=== PATIENT | female | born 1990 | race Caucasian/White ===

== ENCOUNTER 2019-01-12 10:34 | Emergency (ER) | payer OTHER ==
[~2019-01-12] VITALS: Ht 167.6 cm; Wt 55.1 kg
[2019-01-12] MEDS ORDERED: PROMETHAZINE INJ 25 MG/ML VIAL (J2550) IM ONE (11:15)
--- NOTE | 2019-01-12 12:22 | REP ---
Right humerus two views History: Trauma There is no acute fracture or dislocation. The joint spaces are normal in appearance. Impression: There is no fracture or dislocation. Electronically Signed by Claude Bhardwaj MD 01/12/2019 12:13 P
--- NOTE | 2019-01-12 12:24 | REP ---
Right forearm two views History: Trauma There is no acute fracture or dislocation. The joint spaces are normal in appearance. Impression: There is no acute fracture or dislocation. Electronically Signed by Claude Bhardwaj MD 01/12/2019 12:15 P
--- NOTE | 2019-01-12 12:25 | REP ---
Right femur four views History: Trauma There is no acute fracture or dislocation. The joint spaces are normal in appearance. Impression: There is no acute fracture or dislocation. Electronically Signed by Claude Bhardwaj MD 01/12/2019 12:17 P
--- NOTE | 2019-01-12 12:27 | REP ---
Right tibia-fibula of four views History: Trauma There is no acute fracture or dislocation. The joint spaces are normal in appearance. Impression: There is no acute fracture or dislocation. Electronically Signed by Claude Bhardwaj MD 01/12/2019 12:19 P
[2019-01-12 12:28] VITALS: BP 113/72
--- NOTE | 2019-01-12 12:29 | REP ---
Sacrum and coccyx three views History: Trauma There is no acute fracture or subluxation. Intervertebral discs are normal in height. An IUD is present in the pelvis. Impression: There is no acute fracture or subluxation. Electronically Signed by Claude Bhardwaj MD 01/12/2019 12:21 P
[2019-01-13] MEDS ORDERED: CYCL10TA PO (21:06)
== END 2019-01-12 12:30 | disposition home or self-care (01) ==
LOC: M ED 10:34
DX: S39.92XA Unspecified injury of lower back, initial encounter (principal); S79.911A Unspecified injury of right hip, initial encounter; S49.91XA Unspecified injury of right shoulder and upper arm, initial encounter; S89.91XA Unspecified injury of right lower leg, initial encounter; W10.9XXA Fall (on) (from) unspecified stairs and steps, initial encounter; Y92.099 Unspecified place in other non-institutional residence as the place of occurrence of the external cause; Y93.9 Activity, unspecified; Y99.9 Unspecified external cause status; Z72.0 Tobacco use; Z97.5 Presence of (intrauterine) contraceptive device; Z79.899 Other long term (current) drug therapy; Z88.8 Allergy status to other drugs, medicaments and biological substances

== ENCOUNTER 2019-01-13 19:57 | Emergency (ER) | payer OTHER ==
[~2019-01-13] VITALS: Ht 167.6 cm; Wt 55.0 kg
[2019-01-13] MEDS ORDERED: CYCL10TA PO (21:06)
[2019-01-13 21:08] LABS: BASO # 0.1 10^3/uL (0.0-0.2); BASO % 0.7 % (0.0-1.0); EOS # 0.1 10^3/uL (0.0-0.50); EOS % 1.5 % (0.0-3.0); HEMATOCRIT 39.7 % (36.0-47.0); HEMOGLOBIN 13.5 g/dl (12.0-15.5); LYMPH # 2.2 10^3/uL (1.5-6.5); MEAN CORPUSCULAR HEMOGLOBIN 32.5 pg (27.0-33.0); MEAN CORPUSCULAR VOLUME 95.7 fl (80.0-96.0); MONO # 0.7 10^3/uL (0.0-0.8); MONO % 7.4 % (0.0-5.0); NEUTROPHILS # 5.8 10^3/uL (1.8-7.7); NEUTROPHILS % 65.2 % (36.0-66.0); PLATELET COUNT, AUTOMATED 215 10^3/uL (150-450); RED BLOOD COUNT 4.15 10^6/uL (4.00-5.40); WHITE BLOOD COUNT 8.9 10^3/uL (4.0-10.0)
[2019-01-13 21:22] LABS: ALBUMIN 3.9 GM/DL (3.2-5.2); ALT/SGPT 17 U/L (12-78); BILIRUBIN,TOTAL 0.6 MG/DL (0.2-1.0); BLOOD UREA NITROGEN 15 MG/DL (7-18); CALCIUM LEVEL 9.1 MG/DL (8.5-10.1); CARBON DIOXIDE LEVEL 28 MEQ/L (21-32); CHLORIDE LEVEL 106 MEQ/L (98-107); CREATININE FOR GFR 0.94 MG/DL (0.55-1.30); GLOMERULAR FILTRATION RATE > 60.0 (>60); GLUCOSE, FASTING 80 MG/DL (70-100); POTASSIUM SERUM 3.4 MEQ/L (3.5-5.1); SODIUM LEVEL 141 MEQ/L (136-145); TOTAL PROTEIN 6.9 GM/DL (6.4-8.2)
[2019-01-13 22:36] VITALS: BP 102/58
--- NOTE | 2019-01-13 22:42 | REPVR ---
EXAM: US Pelvis Complete, Transabdominal and US Pelvis, Transvaginal EXAM DATE/TIME: 01/13/2019 9:31 PM CLINICAL HISTORY: 28 years old, female; Pelvic pain; Prior surgery; Surgery date: 6+ months; Surgery type: C section; Additional info: R pelvic pain, h/o ovarian cyst TECHNIQUE: Imaging protocol: Real-time transabdominal and transvaginal pelvic ultrasound (complete) with image documentation. Transvaginal imaging was used for better evaluation of the endometrium and adnexa. COMPARISON: CR Sacrum, Coccyx 01/12/2019 11:18 AM FINDINGS: Uterus/cervix: Uterus measures 9.6 and 4.1 x 6.2 cm. Heterogeneous echotexture of the uterus may indicate the presence of adenomyosis. Endometrial echocomplex measures 2.7 mm. IUD demonstrated centrally within the endometrial cavity. Contour deformity lower uterine segment anteriorly consistent with scar. Right adnexa: Right ovary measures 3.7 x 1.8 x 3.7 cm. Resistive index 0.65. 2.5 x 1.6 x 1.1 cm hemorrhagic cyst versus corpus luteum. Left adnexa: Left ovary measures 2.5 x 1.3 x 2.3 cm. Resistive index 0.65. Free fluid: None. Bladder: Normal. IMPRESSION: IV demonstrated within the endometrial cavity. Hemorrhagic cyst versus corpus luteum right ovary. Possible adenomyosis uteri. Further evaluation with pelvic MRI could be obtained in the appropriate clinical setting. Otherwise unremarkable scan status post section. Electronically signed by: Alejo Rodríguez On 01/13/2019 22:41:48 PM
[2019-01-13] MEDS ORDERED: POTASSIUM CHLORIDE 10 MEQ SR TABLET PO ONE (23:45)
--- NOTE | 2019-01-14 09:13 | ECGEPIP ---
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
--- NOTE | 2019-01-17 13:01 | ED PDOC ---
Post-Departure Follow-Up ft camila alonzo faxed formal report of pelvic us for fu Charbel Flores MD Jan 17, 2019 13:01
== END 2019-01-13 23:56 | disposition home or self-care (01) ==
LOC: M ED 19:57
DX: N83.201 Unspecified ovarian cyst, right side (principal); R42 Dizziness and giddiness; N80.0 Endometriosis of uterus; F41.9 Anxiety disorder, unspecified; Z88.8 Allergy status to other drugs, medicaments and biological substances; Z97.5 Presence of (intrauterine) contraceptive device; F17.210 Nicotine dependence, cigarettes, uncomplicated

== ENCOUNTER 2019-05-09 21:46 | Inpatient (IN) | payer OTHER ==
[~2019-05-09] VITALS: Ht 167.6 cm; Wt 52.1 kg
[~2019-05-09 21:46] MED LIST: CYCL10TA PO; FLUO20CA19 PO; IBUP200T45 PO; NICO21PAT TD
[2019-05-09 22:33] LABS: HEMATOCRIT 39.5 % (36.0-47.0); HEMOGLOBIN 13.2 g/dl (12.0-15.5); MEAN CORPUSCULAR HEMOGLOBIN 29.8 pg (27.0-33.0); MEAN CORPUSCULAR HGB CONC 33.4 g/dl (32.0-36.5); MEAN CORPUSCULAR VOLUME 89.2 fl (80.0-96.0); PLATELET COUNT, AUTOMATED 257 10^3/uL (150-450); RED BLOOD COUNT 4.43 10^6/uL (4.00-5.40); WHITE BLOOD COUNT 8.4 10^3/uL (4.0-10.0)
[2019-05-09 22:58] LABS: AMPHETAMINES LEVEL URINE NEGATIVE (NEGATIVE); BARBITURATES URINE NEGATIVE (NEGATIVE); BENZODIAZEPINES URINE NEGATIVE (NEGATIVE); CANNABINOIDS URINE NEGATIVE (NEGATIVE); COCAINE METABOLITE URINE NEGATIVE (NEGATIVE); METHADONE URINE NEGATIVE (NEGATIVE); OPIATES URINE NEGATIVE (NEGATIVE); PHENCYCLIDINE URINE NEGATIVE (NEGATIVE)
[2019-05-09 23:00] LABS: HCG, SERUM QUALITATIVE NEGATIVE (NEGATIVE)
[2019-05-09 23:09] LABS: ACETAMINOPHEN LEVEL < 2.0 UG/ML (10.0-30.0); ALT/SGPT 14 U/L (12-78); BILIRUBIN,DIRECT 0.3 MG/DL (0.0-0.2); BILIRUBIN,TOTAL 1.1 MG/DL (0.2-1.0); BLOOD UREA NITROGEN 20 MG/DL (7-18); CALCIUM LEVEL 8.9 MG/DL (8.5-10.1); CARBON DIOXIDE LEVEL 30 MEQ/L (21-32); CHLORIDE LEVEL 104 MEQ/L (98-107); CREATININE FOR GFR 1.07 MG/DL (0.55-1.30); ETHYL ALCOHOL (ETHANOL) < 0.003 % (0.000-0.010); GLOMERULAR FILTRATION RATE > 60.0 (>60); GLUCOSE, FASTING 89 MG/DL (70-100); POTASSIUM SERUM 3.4 MEQ/L (3.5-5.1); SALICYLATE LEVEL < 1.7 MG/DL (5.0-30.0); SODIUM LEVEL 139 MEQ/L (136-145); TOTAL PROTEIN 7.1 GM/DL (6.4-8.2)
[2019-05-09] MEDS ORDERED: POTASSIUM CHLORIDE 10 MEQ SR TABLET PO ONE (23:30)
[2019-05-10] MEDS ORDERED: MAALOX 30 ML SUSP *UDC PO PRN
[2019-05-10] MEDS ORDERED: ACETAMINOPHEN TAB 650MG DOSE (2X325MG) PO PRN
[2019-05-10] MEDS ORDERED: hydrOXYzine 25 MG TAB PO PRN
[2019-05-10] MEDS ORDERED: MOM 30ML SUSPENSION UDC PO PRN
[2019-05-10] MEDS ORDERED: traZODone 50 MG TAB PO PRN
[2019-05-10] MEDS ORDERED: IBUP-1764 PO (00:28)
[2019-05-10] MEDS ORDERED: CETI10TA8 PO (00:28)
[2019-05-10] MEDS ORDERED: FLUO20CA8 PO (00:28)
[2019-05-10 00:31] VITALS: BP 115/85
[2019-05-10] MEDS ORDERED: POTASSIUM CHLORIDE 10 MEQ SR TABLET PO ONE (01:45)
[2019-05-10 06:26] VITALS: BP 108/74
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
[2019-05-10] MEDS ORDERED: FLUoxetine 10 MG CAP PO ONE (11:00)
[2019-05-10] MEDS ORDERED: CETIRIZINE (ZyrTEC) 10 MG TAB PO PRN (11:00)
[2019-05-10 16:11] VITALS: BP 103/60
[2019-05-11 07:37] VITALS: BP 98/60
--- NOTE | 2019-05-11 08:17 | MHIPNPDOC ---
[facility] [place] Progress Note Sukhwinder Zheng MRN: N/A Date of : N/A Date of Service: 05/11/2019 History of Present Illness The patient is a 28-year-old woman who is well-known to this provider from previous admission and a discharge from the ER, is readmitted to the inpatient mental health unit after reportedly making passive statements that she "did not want to be around her , which was apparently misinterpreted to mean that she had suicidal thoughts." She was brought in, she has been living with a boyfriend despite having not been from her . She reports that she has become more fatigued and irritated, but has generally been in the same state of mental health since her last interaction of this provider on the 03 of May. She reports that she generally gets into difficulties when she is exposed to her soon to be ex- and mother stating that they generally cause her to become irritated and to make statements. She reports that she feel safe in this environment, but is not able to describe any concrete suicidal thoughts to this provider at this time. The psychosocial information is updated as appropriate with the patient and reflected from my previous H&P. Interval History The patient is met with today. She reports being very tearful after a fairly upsetting phone call. She laments in this provider's office for significant amount of time, feeling that "no one loved her." Discussed with the patient at length her emotional experience as well as psycho-education about depression, grief and relational struggle. She reports she is tolerating the Prozac well and the Wellbutrin well and denies any side effects related to it but he continues to report hopelessness, low mood and an inability to see past her negative environment at this time. She had denied any overt suicidality but reported that she did not care whether she "lived or ." Spent a significant amount of time educating the patient on the risks, benefits of Wellbutrin and discussing its role in her treatment as an augmentation regimen. Review Of Systems As above. Psychotherapy None on this visit. Vital Signs Reviewed. Mental Status Examination General: Well dressed with good hygiene Speech: Spontaneous and fluid Thought processes: Linear and logical MSK: Smooth and coordinated gait, no signs of tremors or involuntary orofacial movements Thought content: Hopelessly preoccupied Abstract reasoning, and computation: Intact Description of associations: Intact Description of abnormal or psychotic thoughts: Denies any overt suicidality but reports significant wants to "not be around." Denies any homicidal ideation. Denies any auditory or visual hallucinations. Judgment: Limited Insight: Limited Orientation: Alert and orientated 3 Cognition: Grossly normal Recent and remote memory: Intact Attention span and concentration: Intact Fund of knowledge: Adequate Mood: "Horrible" Affect: Dysthymic and tearful Diagnoses Major depressive disorder in remission. 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 Assessment and Plan MDD, in partial remission: Continue Prozac 30 mg daily. Add Wellbutrin 150 mg daily. Unspecified trauma stress related disorder: As above. 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 Disposition The patient will likely need a further inpatient stay in order to treat her increasingly dysphoric mood and hopelessness that is manifesting into more suicidal statements. Time Spent 30 minutes with greater than 50% of time spent on counseling/coordination of care. Vital Signs Vital Signs Date Time Temp Pulse Resp B/P (MAP) Pulse Ox O2 Delivery O2 Flow Rate FiO2 05/11/19 08:11 Room Air 05/11/19 07:37 98.2 78 14 98/60 (73) 05/10/19 00:31 100 Current Medications Current Medications Medications (Trade) Dose Ordered Sig/Yoandy Route PRN Reason Start Time Stop Time Status Last Admin Dose Admin Acetaminophen (Tylenol Tab) 650 mg Q6HP PRN PO HEADACHE or DISCOMFORT 05/10/19 00:00 Al Hydrox/Mg Hydrox/Simethicone (Mylanta) 30 ml Q4HP PRN PO HEARTBURN/INDIGESTION 05/10/19 00:00 Cetirizine HCl (ZyrTEC) 10 mg DAILY PRN PO ALLERGY SYMPTOMS 05/10/19 11:00 Fluoxetine HCl (PROzac) 20 mg DAILY PO 05/11/19 09:00 05/10/19 10:58 DC Fluoxetine HCl (PROzac) 30 mg DAILY PO 05/11/19 09:00 Home Med (Med Rec Complete!) ASDIRECTED XX 05/10/19 00:30 05/10/19 00:31 DC Hydroxyzine HCl (Atarax) 25 mg QID PRN PO ANXIETY 05/10/19 00:00 Magnesium Hydroxide (Milk Of Magnesia) 30 ml DAILYPRN PRN PO CONSTIPATION 05/10/19 00:00 Trazodone HCl (Desyrel) 50 mg QHSP PRN PO INSOMNIA 05/10/19 00:00 Allergies Coded Allergies: ondansetron (Verified Adverse Reaction, Mild, vomits, 01/12/19) Coconut (Verified Adverse Reaction, Unknown, vomiting, 05/10/19) pineapple (Verified Adverse Reaction, Unknown, VOMITING, 05/10/19) VICKI RIVERA DO May 11, 2019 08:17
[2019-05-11] MEDS ORDERED: FLUoxetine 20 MG CAP PO SCH (09:00)
[2019-05-11] MEDS: FLUoxetine 10 MG CAP PO SCH (09:28)
--- NOTE | 2019-05-11 12:16 | HPEPDOC ---
General Date of Admission May 09, 2019 at 23:59 Date of Service: May 11, 2019 Chief Complaint The patient is a 28-year-old female Who presented to the emergency room with complaints of feeling overwhelmed and stressed History of Present Illness Patient is a 28-year-old female with a past history of depression, anxiety, who presented to the emergency room with complaints of feeling overwhelmed and stressed. This is currently being managed by psychiatry. Hospitalist services consultation for medical screening evaluation. Currently patient denies any headache. Patient does report some chest discomfort with palpitations. She denies shortness of breath or cough. Denies any abdominal pain but does report nausea without vomiting. Has reported some diarrhea that started yesterday. She is reported 3-4 bowel movements that she notes are watery/loose. Patient has not experienced any fevers over the last 2 weeks, but does report some chills. Patient reports that her appetite is on and off and has reported a weight loss of approximately 4 kg over 1-2 week duration. Home Medications Scheduled Fluoxetine Hcl (Fluoxetine HCl) 20 Mg Capsule, 20 MG PO DAILY, (Reported) Scheduled PRN Cetirizine HCl (Cetirizine HCl) 10 Mg Tablet, 10 MG PO DAILY PRN for ALLERGY SYMPTOMS, (Reported) Ibuprofen (Ibuprofen) 200 Mg Tablet, 400 MG PO Q6H PRN for PAIN, (Reported) Allergies Coded Allergies: ondansetron (Verified Adverse Reaction, Mild, vomits, 01/12/19) Coconut (Verified Adverse Reaction, Unknown, vomiting, 05/10/19) pineapple (Verified Adverse Reaction, Unknown, VOMITING, 05/10/19) Past Medical History Medical History Depression / Anxiety Surgical History Right knee surgery 2016 2, 2012 and 2014 Family History - Mother with a history of melanoma and thyroid disease - Father with history of heart problems Social History - Denies the use of illicit drugs; patient reports that she quit smoking. Patient does report social alcohol use - Denies recent travel or sick contacts - Lives alone - Occupation; patient is currently unemployed Review of Systems Other systems 10 point review of systems complete, all negative otherwise stated in HPI Vital Signs - Vitals: BP 98/60, HR 78, RR 14, Sat 100%RA, Temp 98.2F - General: Lying in bed, No acute distress, Speaking in full sentences, AAOx3 - HEENT: NC, AT, PERRLA, EOMI - CVS: RRR, +S1S2 - Lungs: Fair air entry bilaterally, No appreciable wheezing / rales / rhonchi - Abdomen: Soft, Non-distended, Non-tender - Extremities: No lower extremity edema, No calf tenderness - Neuro: No focal motor or sensory deficit - Skin: No visible rashes Plan / VTE VTE Prophylaxis Ordered?: Yes Plan Plan Stress / Feeling overwhelmed/ Depression / Anxiety - Patient reports that over the last few weeks shes been feeling more overwhelmed and cant - Patient was admitted to inpatient mental health unit under the care of psychiatry - Currently being managed by psychiatry Patient has reported some diarrhea - Lab work does not reveal any evidence of dehydration - Advised increased oral hydration DVT prophylaxis - c/w early ambulation Female production operations engineer was present for the duration of his history and physical examination Please reconsult as needed TUSHAR RAMSEY MD May 11, 2019 12:15
[2019-05-11 18:00] VITALS: BP 116/68
[2019-05-12 06:44] VITALS: BP 110/66
[2019-05-12] MEDS: FLUoxetine 10 MG CAP PO SCH (09:30)
[2019-05-12] MEDS: buPROPion **XL** TABLET 150MG (WELLBUTRIN XL) PO SCH (09:30)
--- NOTE | 2019-05-12 09:42 | MHDSPDOC ---
[facility] Discharge Summary Vital Signs/I&Os Vital Signs Date Time Temp Pulse Resp B/P (MAP) Pulse Ox O2 Delivery O2 Flow Rate FiO2 05/12/19 06:44 98.6 71 14 110/66 (81) 05/11/19 08:11 Room Air 05/10/19 00:31 100 Medications Scheduled Fluoxetine Hcl (Fluoxetine HCl) 20 Mg Capsule, 20 MG PO DAILY, (Reported) Scheduled PRN Cetirizine HCl (Cetirizine HCl) 10 Mg Tablet, 10 MG PO DAILY PRN for ALLERGY SYMPTOMS, (Reported) Ibuprofen (Ibuprofen) 200 Mg Tablet, 400 MG PO Q6H PRN for PAIN, (Reported) Allergies Coded Allergies: ondansetron (Verified Adverse Reaction, Mild, vomits, 01/12/19) Coconut (Verified Adverse Reaction, Unknown, vomiting, 05/10/19) pineapple (Verified Adverse Reaction, Unknown, VOMITING, 05/10/19) VICKI RIVERA DO May 12, 2019 09:42
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
[2019-05-12 15:44] VITALS: BP 100/50
[2019-05-13 06:59] VITALS: BP 99/59
[2019-05-13] MEDS: FLUoxetine 10 MG CAP PO SCH (09:35)
[2019-05-13] MEDS: buPROPion **XL** TABLET 150MG (WELLBUTRIN XL) PO SCH (09:35)
[2019-05-13 16:07] VITALS: BP 100/60
--- NOTE | 2019-05-13 17:11 | MHIPNPDOC ---
[facility] Progress Note Progress Note DATE OF SERVICE: 05/13/19 HISTORY: As per Dr. Garcia's previous notes: "The patient a 28-year-old woman who is well-known to this provider from previous admission and a discharge from the ER, is readmitted to the inpatient mental health unit after reportedly making passive statements that she "did not want to be around her , which was apparently misinterpreted to mean that she had suicidal thoughts." She was brought in, she has been living with a boyfriend despite having not been from her . She reports that she has become more fatigued and irritated, but has generally been in the same state of mental health since her last interaction of this provider on the 03 of May. She reports that she generally gets into difficulties when she is exposed to her soon to be ex- and mother stating that they generally cause her to become irritated and to make statements. She reports that she feel safe in this environment, but is not able to describe any concrete suicidal thoughts to this provider at this time." VITAL SIGNS: See below. NEW TEST RESULTS: See below CURRENT MEDICATIONS: See below. MENTAL STATUS EXAMINATION: Patient is a 28-year old female, who is alert, cooperative, dressed in hospital clothes, laying in bed. Speech: Is spontaneous and fluent, normal rate, tone and volume. Language skills are intact. Thought processes including: linear, coherent. Thought content: positive for anxious/depressive thoughts, hopelessness, helplessness, worthlessness, passive SI without a plan. Description of associations: . Description of abnormal or psychotic thoughts: denies t/A/ V hallucinations, she denies thought delusions, not responding to internal stimuli, denies active SI/HI Judgment: fair Insight: fair. Orientation: x 3. Recent and remote memory: fair. Attention span and concentration: good. Language: no abnormalities observed. Fund of knowledge: average. Mood: "I' pretty bad". Affect: very depressed, tearful. DIAGNOSES: 1. Major depressive disorder in remission. 2. Unspecified trauma/stressor-related disorder. 3. Unspecific personality disorder. 4. Likely dependent. ASSESSMENT: Patient reports she felt nauseous earlier and at times she has felt dizzy, but is gone now. She has low energy levels, anhedonia, is very depressed, feels hopeless, helpless and worthless. She feels she is a problem for e verybody. it's too early during her course of treatment. She will need more days of treatment so that she can feel a little better. she sys she understands this because she has been on antidepressants before. she was able to contract for safety. MANAGEMENT PLAN: As per Dr. Garcia TIME SPENT: 20 minutes. Vital Signs Vital Signs Date Time Temp Pulse Resp B/P (MAP) Pulse Ox O2 Delivery O2 Flow Rate FiO2 05/13/19 06:59 98.2 70 16 99/59 (72) 05/11/19 08:11 Room Air 05/10/19 00:31 100 Current Medications Current Medications Medications (Trade) Dose Ordered Sig/Yoandy Route PRN Reason Start Time Stop Time Status Last Admin Dose Admin Acetaminophen (Tylenol Tab) 650 mg Q6HP PRN PO HEADACHE or DISCOMFORT 05/10/19 00:00 Al Hydrox/Mg Hydrox/Simethicone (Mylanta) 30 ml Q4HP PRN PO HEARTBURN/INDIGESTION 05/10/19 00:00 Bupropion HCl (Wellbutrin Xl) 150 mg QAM PO 05/12/19 09:00 05/13/19 09:35 Cetirizine HCl (ZyrTEC) 10 mg DAILY PRN PO ALLERGY SYMPTOMS 05/10/19 11:00 Fluoxetine HCl (PROzac) 20 mg DAILY PO 05/11/19 09:00 05/10/19 10:58 DC Fluoxetine HCl (PROzac) 30 mg DAILY PO 05/11/19 09:00 05/13/19 09:35 Home Med (Med Rec Complete!) ASDIRECTED XX 05/10/19 00:30 05/10/19 00:31 DC Hydroxyzine HCl (Atarax) 25 mg QID PRN PO ANXIETY 05/10/19 00:00 Magnesium Hydroxide (Milk Of Magnesia) 30 ml DAILYPRN PRN PO CONSTIPATION 05/10/19 00:00 Trazodone HCl (Desyrel) 50 mg QHSP PRN PO INSOMNIA 05/10/19 00:00 Allergies Coded Allergies: ondansetron (Verified Adverse Reaction, Mild, vomits, 01/12/19) Coconut (Verified Adverse Reaction, Unknown, vomiting, 05/10/19) pineapple (Verified Adverse Reaction, Unknown, VOMITING, 05/10/19) MARCOS MARINO MD May 13, 2019 14:01
[2019-05-14 06:44] VITALS: BP 114/55
[2019-05-14] MEDS: buPROPion **XL** TABLET 150MG (WELLBUTRIN XL) PO SCH (09:25)
[2019-05-14] MEDS: FLUoxetine 10 MG CAP PO SCH (09:25)
--- NOTE | 2019-05-14 12:55 | MHIPNPDOC ---
[facility] Progress Note Progress Note DATE OF SERVICE: 05/14/19 HISTORY: As per Dr. Garcia's previous notes: "The patient a 28-year-old woman who is well-known to this provider from previous admission and a discharge from the ER, is readmitted to the inpatient mental health unit after reportedly making passive statements that she "did not want to be around her , which was apparently misinterpreted to mean that she had suicidal thoughts." She was brought in, she has been living with a boyfriend despite having not been from her . She reports that she has become more fatigued and irritated, but has generally been in the same state of mental health since her last interaction of this provider on the 03 of May. She reports that she generally gets into difficulties when she is exposed to her soon to be ex- and mother stating that they generally cause her to become irritated and to make statements. She reports that she feel safe in this environment, but is not able to describe any concrete suicidal thoughts to this provider at this time." VITAL SIGNS: See below. NEW TEST RESULTS: See below CURRENT MEDICATIONS: See below. MENTAL STATUS EXAMINATION: Patient is a 28-year old female, who is alert, cooperative, dressed in hospital clothes, laying in bed. Speech: Is spontaneous and fluent, normal rate, tone and volume. Language skills are intact. Thought processes including: linear, coherent. Thought content: positive for anxious/depressive thoughts, hopelessness, helplessness, worthlessness, passive SI without a plan. Description of associations: . Description of abnormal or psychotic thoughts: denies t/A/ V hallucinations, she denies thought delusions, not responding to internal stimuli, denies active SI/HI Judgment: fair Insight: fair. Orientation: x 3. Recent and remote memory: fair. Attention span and concentration: good. Language: no abnormalities observed. Fund of knowledge: average. Mood: "Not good". Affect: depressed, tearful. DIAGNOSES: 1. Major depressive disorder in remission. 2. Unspecified trauma/stressor-related disorder. 3. Unspecific personality disorder. 4. Likely dependent. ASSESSMENT: Patient reports a little bit better today, she still has poor energy levels, she still feels hopeless, helpless, worthless. encouraged her, once again, to attend groups and continue treatment. MANAGEMENT PLAN: As per Dr. Garcia TIME SPENT: 20 minutes. Vital Signs Vital Signs Date Time Temp Pulse Resp B/P (MAP) Pulse Ox O2 Delivery O2 Flow Rate FiO2 05/14/19 06:44 97.7 69 12 114/55 (74) 05/11/19 08:11 Room Air 05/10/19 00:31 100 Current Medications Current Medications Medications (Trade) Dose Ordered Sig/Yoandy Route PRN Reason Start Time Stop Time Status Last Admin Dose Admin Acetaminophen (Tylenol Tab) 650 mg Q6HP PRN PO HEADACHE or DISCOMFORT 05/10/19 00:00 Al Hydrox/Mg Hydrox/Simethicone (Mylanta) 30 ml Q4HP PRN PO HEARTBURN/INDIGESTION 05/10/19 00:00 Bupropion HCl (Wellbutrin Xl) 150 mg QAM PO 05/12/19 09:00 05/14/19 09:25 Cetirizine HCl (ZyrTEC) 10 mg DAILY PRN PO ALLERGY SYMPTOMS 05/10/19 11:00 Fluoxetine HCl (PROzac) 20 mg DAILY PO 05/11/19 09:00 05/10/19 10:58 DC Fluoxetine HCl (PROzac) 30 mg DAILY PO 05/11/19 09:00 05/14/19 09:25 Home Med (Med Rec Complete!) ASDIRECTED XX 05/10/19 00:30 05/10/19 00:31 DC Hydroxyzine HCl (Atarax) 25 mg QID PRN PO ANXIETY 05/10/19 00:00 Magnesium Hydroxide (Milk Of Magnesia) 30 ml DAILYPRN PRN PO CONSTIPATION 05/10/19 00:00 Trazodone HCl (Desyrel) 50 mg QHSP PRN PO INSOMNIA 05/10/19 00:00 Allergies Coded Allergies: ondansetron (Verified Adverse Reaction, Mild, vomits, 01/12/19) Coconut (Verified Adverse Reaction, Unknown, vomiting, 05/10/19) pineapple (Verified Adverse Reaction, Unknown, VOMITING, 05/10/19) MARCOS MARINO MD May 14, 2019 12:55
[2019-05-14 16:07] VITALS: BP 115/76
[2019-05-15 06:34] VITALS: BP 100/62
[2019-05-15] MEDS: buPROPion **XL** TABLET 150MG (WELLBUTRIN XL) PO SCH (09:03)
[2019-05-15] MEDS: FLUoxetine 10 MG CAP PO SCH (09:03)
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
[2019-05-15] MEDS ORDERED: FLUO10CA8 PO (09:31)
[2019-05-15] MEDS ORDERED: BUPR150T3 PO (09:31)
== END 2019-05-15 13:33 | disposition home or self-care (01) | DRG 751 ==
LOC: M ED 21:46 → M ED INP 23:59 → M PSY 05-10 00:37
PROVIDERS: ADMIT Psychiatry & Neurology Psychiatry; ATTEND Psychiatry & Neurology Addiction Medicine
DX: F32.4 Major depressive disorder, single episode, in partial remission (principal); F43.9 Reaction to severe stress, unspecified; F60.3 Borderline personality disorder; F60.7 Dependent personality disorder; Z63.5 Disruption of family by separation and divorce; Z81.8 Family history of other mental and behavioral disorders; Z91.410 Personal history of adult physical and sexual abuse; Z79.899 Other long term (current) drug therapy; Z88.8 Allergy status to other drugs, medicaments and biological substances; Z91.018 Allergy to other foods; F41.8 Other specified anxiety disorders; R11.0 Nausea; R19.7 Diarrhea, unspecified